=== PATIENT | male | born 1970 | race Caucasian/White ===

== ENCOUNTER 2021-04-26 11:11 | Observation (INO) | payer MEDICAID, SELFPAY ==
[2021-04-26 11:13] VITALS: BP 144/90; PULSE 76; RESP 18; TEMP 36.3; O2SAT 97; BMI 43.7
--- NOTE | 2021-04-26 11:49 | CT_ITS ---
HISTORY: Epigastric pain, worse with eating EXAMINATION: CT Abdomen And Pelvis W/ Contrast Injection TECHNIQUE: Helically acquired images were obtained of the abdomen and pelvis following IV contrast. A radiation dose optimization technique was used for this scan. IV Contrast dosage and agent: 100mL [id number]-370 Oral contrast: None. COMPARISON: None FINDINGS: LOWER CHEST: Mild dependent changes. No cardiomegaly or pericardial effusion. LIVER: Homogeneous. No focal mass. GALLBLADDER AND BILIARY TREE: No calcified gallstones. Abnormal transverse gallbladder distention to 5.4 cm with mild wall edema. No intra- or extrahepatic biliary ductal dilation. PANCREAS: No focal cystic or solid mass. SPLEEN: Normal size without focal cystic or solid mass. ADRENAL GLANDS: No nodules. KIDNEYS AND URETERS: Normal renal size and position. No hydronephrosis. PERITONEUM: No ascites or free air. BOWEL: Normal appendix. No stomach or bowel distension. No focal inflammatory bowel wall changes. LYMPH NODES: No enlarged mesenteric or retroperitoneal lymph nodes. VESSELS: Aorta is non-dilated. URINARY BLADDER: Unremarkable. REPRODUCTIVE ORGANS: No pelvic masses. ABDOMINAL WALL: Small fat-containing left inguinal hernia. BONES: No acute or aggressive abnormality. CT/Abdomen/Pelvis W IV Cont ONLY IMPRESSION: Abnormal gallbladder distention with mild wall edema. Recommend correlation with gallbladder ultrasound for possible acute cholecystitis. Individualized dose optimization techniques were used for this CT. at 1344 Reported and signed by: Ruy Simpson MD Electronically Signed: Ruy Simpson MD at 13:43 EDT Tel , Service support ,
--- NOTE | 2021-04-26 11:50 | EDS_ITS ---
HPI History of Present Illness Chief Complaint: Abd Pain Informant: patient Narrative Narrative: Patient is a 50-year-old male with a past medical history of diverticulitis who presents to the emergency department for epigastric abdominal pain. States it started yesterday. The pain gets up to an 8 out of 10. He currently rates pain as a 5 out of 10. Is not taking anything for it. Vomiting seems to help his symptoms. Eating seems to make it worse. He denies any change in bowel movements. No urinary symptoms. No fevers or chills. Denies any chest pain or shortness of breath. He does have a history of multiple hernia repairs in the abdomen. Denies any radiation of the pain to the back. He describes the pain as a sharp stabbing. He denies any alcohol use. [facility] Medical History (Updated 04/26/21 @ 13:[address] Alejandro Villarreal DO) Diverticulitis Hernia Home Medications NK 04/26/21 [History Last Taken Unknown] Allergy/AdvReac Type Severity Reaction Status Date / Time No Known Allergies Allergy Verified 04/26/21 11:12 Social History (Updated 04/26/21 @ 11:[address] Alejandro Villarreal DO) Smoking Status: Never smoker ROS ROS ED Constitutional Constitutional ED: Denies chills or fever(s) Eyes Eyes: Denies change in vision ENT ENT ED: Denies epistaxis or rhinorrhea Cardiovascular Cardiovascular: Denies chest pain or palpitations Respiratory/Chest Respiratory/Chest: Denies cough, dyspnea or dyspnea on exertion Gastrointestinal Gastrointestinal: Reports abdominal pain, nausea and vomiting; Denies constipation, diarrhea or melena Genitourinary Genitourinary ED: Denies dysuria, hematuria or urinary frequency Musculoskeletal Musculoskeletal: Denies back pain or neck pain Integumentary Denies rash Neurologic Neurologic: Denies dizziness, headache(s) or weakness EXAM Physical Exam Const Vital Signs: 04/26/21 11:13 Temperature 97.3 F L Temperature Source Temporal Pulse Rate 76 Respiratory Rate 18 Blood Pressure 144/90 H Blood Pressure Mean 108 Pulse Ox 97 Oxygen Delivery Method Room Air Positive well nourished and well developed General Appearance ED: well developed and NAD HEENT Reports normocephalic and head/scalp atraumatic Eyes PERRL and EOMs intact bilaterally Neck no lymphadenopathy and supple General: Negative for tenderness Resp normal respiratory effort and clear to auscultation bilaterally Auscultation: Negative for rales, rhonchi or wheezes Cardio regular rate, regular rhythm and no murmurs GI normal to inspection, nondistended, normoactive bowel sounds and non-tender GI Narrative: Negative Puente sign, no pain over McBurney's point. No reproducible pain on my examination. Palpation: soft; Negative for guarding or rebound tenderness present Back/Spine no CVA tenderness Extremity normal to inspection General Extremety ED: Negative for edema or tenderness General Extremity: Negative for edema Neuro CN's II-XII intact bilaterally and no sensory deficits noted Sensorium / Orientation: alert Motor Exam: strength 5/5 throughout Psych mental status grossly normal Skin no rashes or lesions noted MDM MDM MDM Narrative Medical decision making narrative: Patient presents the ED for abdominal discomfort in the epigastric region. He has been nauseous and vomiting with this. He states that this is kind of similar to his history of diverticulitis. Upon arrival to the ED vital signs within normal limits. He is a benign physical exam without any reproducible pain. Will check basic lab work and CT scan abdomen/pelvis. He is given morphine, Zofran, GI cocktail for symptomatic treatment. On reexamination patient is feeling mildly better. We will give him a second dose of pain medication. CT scan did show distention and edema of the gallbladder wall. His liver enzymes and bilirubin are elevated. Does not have a leukocytosis. Lipase is within normal limits. I did discuss this with Dr. Gonzalez. She is willing to admit the patient for further evaluation and management. We will treat him as acute cholecystitis. He is started on Zosyn. No known antibiotic allergies. Lab Data Labs: Laboratory Results - last 24 hr 04/26/21 04/26/21 12:00 12:00 WBC 6.6 RBC 4.98 Hgb 15.2 Hct 44.4 MCV 89.2 MCH 30.5 MCHC 34.2 RDW Std Deviation 41.2 RDW Coeff of Ron 12.7 Plt Count 186 MPV 9.1 Immature Gran % (Auto) 0.300 Neut % (Auto) 85.7 H Lymph % (Auto) 7.3 L [place] % (Auto) 5.3 Eos % (Auto) 0.8 Baso % (Auto) 0.6 Absolute Neuts (auto) 5.7 Absolute Lymphs (auto) 0.48 L Nucleated RBC % 0 Sodium 137 Potassium 4.0 Chloride 106 Carbon Dioxide 25.0 Anion Gap 6 BUN 11 Creatinine 0.99 Estim Creat Clear Calc 109.06 Est GFR (MDRD) Af Amer 103 Est GFR (MDRD) Non-Af 85 BUN/Creatinine Ratio 11.1 Glucose 116 H Calcium 8.5 Total Bilirubin 1.50 H AST 177 H ALT 293 H Alkaline Phosphatase 79 Total Protein 7.8 Albumin 4.0 Globulin 3.8 Albumin/Globulin Ratio 1.1 Lipase 55 L Radiography Diagnostic Testing: Radiology Impression Abdomen/Pelvis CT 04/26/21 11:49 IMPRESSION: Abnormal gallbladder distention with mild wall edema. Recommend correlation with gallbladder ultrasound for possible acute cholecystitis. Individualized dose optimization techniques were used for this CT. at 1344 Reported and signed by: Ruy Simpson MD Electronically Signed: Ruy Simpson MD at 13:43 EDT Tel , Service support , Discharge Plan Dx/Rx/DC Orders Clinical Impression: Acute cholecystitis, Transaminitis, Abdominal pain Disposition Disposition: Acute Care [facility]
[2021-04-26] MEDS: Mag Hydrox/Al Hydrox/Simeth 30 ML UDC PO (11:58)
[2021-04-26 12:07] LABS: Absolute Lymphocyte Count 0.48 X10^3/uL (0.83-4.51); Absolute Neutrophil Count 5.7 X10^3/uL (2.0-7.7); Basophil# 0.04 X10^3/uL; Basophil% 0.6 % (0-1); Eosinophil# 0.05 X10^3/uL; Eosinophils% 0.8 % (0-5); Hematocrit 44.4 % (40-54); Hemoglobin 15.2 g/dL (13.0-16.5); Lymphocyte # 0.48 X10^3/ul (0.83-4.51); Lymphocyte % 7.3 % (19-41); Mean Corp Hgb Conc 34.2 g/dL (32-36); Mean Corpuscular Hgb 30.5 pg (27.0-32.0); Mean Corpuscular Volume 89.2 fL (80-94); Mean Platelet Vol. 9.1 fl (6.2-12.0); Monocyte# 0.35 X10^3/uL; Monocyte% 5.3 % (0-10); NRBC Flagged by Analyzer 0 % (0-5); Neutrophil # 5.66 X10^3/uL (2.7-7.7); Neutrophil % 85.7 % (47-70); POSITIVE DIFFERENTIAL YES; Platelet Count 186 K/mm3 (150-450); RBC Distribution Width CV 12.7 % (11.6-14.6); RBC Distribution Width SD 41.2 fl (35.1-43.9); Red Blood Count 4.98 M/mm3 (4.6-6.2); White Blood Count 6.6 K/mm3 (4.4-11.0)
[2021-04-26 12:09] LABS: Differential Indicated SCAN CRITERIA MET
[2021-04-26 12:22] LABS: ALB/GLOB Ratio 1.1 RATIO (0.9-2.4); AST(SGOT) 177 U/L (15-37); Alanine Aminotransfer ALT/SGPT 293 U/L (16-61); Alkaline Phosphatase 79 U/L (45-117); Anion Gap 6 (5-15); BUN 11 mg/dL (7-18); BUN/Creat Ratio 11.1 RATIO (10-20); Calcium,Total 8.5 mg/dL (8.5-10.1); Chloride 106 mmol/L (98-107); Creatinine, Serum 0.99 mg/dL (0.70-1.30); EST Glomerular Filtration Rate 85 mL/min (>60); Est Glom Filt Rate - Afr Amer 103 mL/min (>60); Estimated Creatinine Clearance 109.06 ml/min; Globulin 3.8 g/dL (2.2-4.2); Glucose 116 mg/dL (74-106); Lipase 55 U/L (73-393); Protein, Total 7.8 g/dL (6.4-8.2); Sodium Level 137 mmol/L (136-145)
[2021-04-26] MEDS: HYDROmorphone 0.5 MG/0.5 ML SYRINGE IV ×3 (12:31→19:15)
[2021-04-26] MEDS: Ondansetron 4 MG/2 ML Vial IV ×3 (12:31→20:48)
[2021-04-26 14:29] VITALS: BP 160/106; PULSE 65; RESP 16; TEMP 36.8; O2SAT 98
[2021-04-26] MEDS: 0.9% Normal Saline 1,000 ML 125 ML IV (14:40)
[2021-04-26 15:07] VITALS: BP 116/76; PULSE 56; RESP 18; TEMP 36.6; O2SAT 97; BMI 44.3
--- NOTE | 2021-04-26 17:06 | HP.PCM_ITS ---
History and Physical Date of Admission: 04/26/21 Chief Complaint: abdominal pain History of Present Illness: 50 y/o morbidly obese WM presents with abdominal pain to the [facility] ED. He states that it began yesterday. He describes this as a sharp, stabbing pain. He has had accompanying symptoms of nausea and emesis. He states that vomiting help alleviate the pain, but eating makes it worse. He states that about three years ago, he had similar symptoms and they ([facility]) diagnosed him with diverticulitis, he states may be that it was his gallbladder all the time and they screwed up Workup in the ED - WBC was normal but slight left shift of differential. CT scan revealed distended gallbladder with mild wall edema but no peritoneal fluid Past Medical History: morbid obesity Past Surgical History: right and left inguinal hernia repair recurrent right inguinal hernia repair finger fracture repair Medications: denies taking chronic medications Allergies: Has no known drug allergies Social history: TOB use denies ETOH use - denies REVIEW OF SYSTEMS: General - denies fevers, denies weight loss, denies anorexia Cardiovascular denies chest pain, denies history of heart attack Pulmonary denies shortness of breath, denies coughing up blood Gastrointestinal as per HPI, denies blood in stools Neurological denies seizures, denies history of stroke Genitourinary denies burning with urination, denies blood in urine Hematological denies spontaneous/prolonged bleeding Skin denies open non healing wounds Musculoskeletal had finger fracture in the past Endocrine denies diabetes, states that he was on thyroid medications in the past Psychological denies hallucinations PHYSICAL EXAMINATION: Vital signs Temp 97.3F BP 144/90 RR 16 HR 76 General WD/WN WM in no apparent distress, alert and oriented, not septic appearing HEENT Normocephalic. EOM intact with sclera clear and no icterus noted. Neck is supple . Trachea is midline. Lungs normal respiratory excursion, no adventitial sounds noted. No labored breathing noted, such as retractions. No cough heard. Heart regular. Abdomen soft, morbidly obese, patient points to tenderness in the epigastrium, difficult to determine if any masses/organomegaly due to body habitus Extremities no pitting edema noted. . Genitourinary/Rectal deferred Skin normal skin integrity. Neurological non focal. Psychological normal affect, patient is calm and appropriate IMPRESSION: epigastric abdominal pain elevated LFTs gallbladder wall thickening by CT scan DISCUSSION/PLAN: I have reviewed all of the above. This patient does not have classic signs of biliary colic. The only findings of an abnormal gallbladder are gallbladder distention and wall thickening seen on CT scan (no stones) which is non specific. Also his liver function tests are elevated but this is primarily the tbili, AST and ALT. The tbili elevated may be Gilbert's syndrome, and the elevated AST/ALT may be due to fatty liver changes. The alkphos is normal. I would plan on obtaining a formal gallbladder ultrasound and a HIDA scan. This cannot be done presently , given that this is the holiday weekend. Therefore will wait until Wednesday when these tests are more likely to be available. The patient is not in extremis. I have told patient that tests will be obtained on Wednesday. He will remain on a clear liquid diet, so as not to worsen any possibility of gallbladder problems. Patient acknowledges the above.
[2021-04-26] MEDS: Scopolamine 1mg/72hr Patch 1 PATCH TD (18:46)
[2021-04-26] MEDS: proMETHazine 25 MG/ML Syringe 12.5 MG IM (18:47)
[2021-04-26] MEDS: 0.9% Saline Lock 10 ML Syringe IV ×2 (19:15→20:48)
--- NOTE | 2021-04-26 19:51 | PN_ITS ---
Progress Note Patient and family requests transfer to another hospital I have contacted [facility]. DR. Hooks wIlL Be aCcEpTiNg pAtIeNt.
--- NOTE | 2021-04-26 20:00 | NURSING ---
Spoke with Dr. Gonzalez. Pt has been accepted by Dr. Kim at [facility]. verbal order for discharge given and additional X1 dose of Zofran.
--- NOTE | 2021-04-26 20:30 | NURSING ---
Spoke with Elfego from cat scan to request CT. This nurse informed images would be sent electronically through computer system to [facility] .
[2021-04-26 20:43] VITALS: BP 124/82; PULSE 70; RESP 18; TEMP 37.2; O2SAT 94
[2021-04-26 20:45] VITALS: RESP 18
[2021-04-26] MEDS: Famotidine 200 MG/20 ML MDV 20 MG in 0.9% Normal Saline (Pres. free 8 ML 300 MG IV (20:48)
--- NOTE | 2021-04-26 20:50 | NURSING ---
[facility]ed transport [facility] ETA 25-30 minutes
--- NOTE | 2021-04-26 21:15 | NURSING ---
[facility] here to get pt. Verbal report given. Pt alert with pain controlled. Assisted to stretcher. Belongings bag given to ems. Pt with wallet and cell phone in hand. Denies additional needs at this time.
== END 2021-04-26 21:15 | disposition short-term general hospital (02) ==
LOC: ED 14:06 → MS3 19:32
PROVIDERS: Admitting Provider Surgery; Emergency Provider Emergency Medicine; Visit Provider Surgery
DX: K82.8 Other specified diseases of gallbladder (principal); E66.01 Morbid (severe) obesity due to excess calories; Z68.41 Body mass index [BMI] 40.0-44.9, adult
CPT/HCPCS: 74177; 80053; 83690; 85025; 96361; 96365; 96372; 96375; 96376; 99218; 99283; J7030; J7050; Q9967; A4216; G0378; J2405; J3490